=== PATIENT | female | born 1945 | race Caucasian/White ===

== ENCOUNTER 2020-09-14 10:26 | Outpatient (CLI) | payer OTHER, MEDICARE, SELFPAY | END 2020-09-14 10:27 | disposition home or self-care (01) | LOC: ANHCOVIDVC 10:27 | PROVIDERS: PCP Internal Medicine | DX: Z23 Encounter for immunization (principal) | CPT/HCPCS: 0001A; 91300 ==

== ENCOUNTER 2020-10-05 10:35 | Outpatient (CLI) | payer OTHER, MEDICARE, SELFPAY | END 2020-10-05 10:36 | disposition home or self-care (01) | LOC: ANHCOVIDVC 10:35 | PROVIDERS: PCP Internal Medicine | DX: Z23 Encounter for immunization (principal) | CPT/HCPCS: 0002A; 91300 ==

== ENCOUNTER 2021-03-01 10:43 | Outpatient (CLI) | payer OTHER, SELFPAY ==
--- NOTE | ~2021-03-01 | XR_ITS ---
XR chest 2V DATE: 03/01/2021 11:01 INDICATION: Shortness of breath. Pain. TECHNIQUE: PA and lateral views COMPARISON: 02/03/2019 PA and lateral chest FINDINGS: Triple lead left pacemaker device with leads overlying right atrium, right ventricle and co ronary sinus. Normal heart size. There is aortic unfolding. No hilar or mediastinal enlargement. No pulmonary infiltrate or consolidation, pleural effusion or pulmonary vascular congestion or pneumo thorax is detected. Diffuse osteopenia. IMPRESSION: Triple lead left-sided pacemaker device No active cardiopulmonary disease or significant change since 02/03/2019 Reviewed, dictated and finalized at location B.
== END 2021-03-01 10:44 | disposition home or self-care (01) ==
LOC: ANHIMG 10:48
PROVIDERS: PCP Internal Medicine; Visit Provider Internal Medicine Cardiovascular Disease
DX: R06.02 Shortness of breath (principal); Z86.2 Personal history of diseases of the blood and blood-forming organs and certain disorders involving the immune mechanism; Z95.0 Presence of cardiac pacemaker
CPT/HCPCS: 71046

== ENCOUNTER → 2022-10-11 14:25 | Outpatient (CLI) | payer OTHER, SELFPAY ==
--- NOTE | ~2022-10-11 | XR_ITS ---
AP and lateral views of the right hip Clinical history: Pain Findings: No acute fracture or dislocation is seen. Osseous alignment is anatomic. The right hip join t is preserved. Soft tissues are unremarkable. Impression: No significant abnormality is seen. Reviewed, dictated and finalized at location . Impression: No significant abnormality is seen.
== END ==
PROVIDERS: PCP Family Medicine; Visit Provider Family Medicine
DX: M25.551 Pain in right hip (principal)
CPT/HCPCS: 73502

== ENCOUNTER 2023-03-24 14:07 | Outpatient (CLI) | payer OTHER, SELFPAY | END 2023-03-24 14:08 | disposition home or self-care (01) | LOC: ANHAUDIO 14:07 | PROVIDERS: PCP Family Medicine; Visit Provider Otolaryngology | DX: H65.91 Unspecified nonsuppurative otitis media, right ear (principal); H90.42 Sensorineural hearing loss, unilateral, left ear, with unrestricted hearing on the contralateral side; H90.71 Mixed conductive and sensorineural hearing loss, unilateral, right ear, with unrestricted hearing on the contralateral side | CPT/HCPCS: 92557; 92567 ==

== ENCOUNTER → 2023-04-04 10:31 | Outpatient (CLI) | payer OTHER, SELFPAY ==
--- NOTE | ~2023-04-04 | XR_ITS ---
XR chest 2V DATE: 04/04/2023 10:39 INDICATION: Cough, congestion. Upper respiratory infection. TECHNIQUE: 2 views COMPARISON: 03/01/2021 2 view chest FINDINGS: Left triple lead pacemaker is again noted. Heart size is normal. Mild aortic unfolding. No hilar or mediastinal enlargement. Moderate bilateral hyperinflation. No pulmonary infiltrate or consolidation, pleural effusion or pulm onary vascular congestion or pneumothorax is detected. Osteopenia IMPRESSION: No active cardiopulmonary disease Reviewed, dictated and finalized at location B. 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
== END ==
PROVIDERS: PCP Family Medicine; Visit Provider Family Medicine
DX: J06.9 Acute upper respiratory infection, unspecified (principal); R05.9 Cough, unspecified
CPT/HCPCS: 71046

== ENCOUNTER 2024-07-05 08:22 | Emergency (ER) | payer OTHER, SELFPAY ==
--- NOTE | ~2024-07-05 | XR_ITS ---
EXAMINATION: XR chest 2V DATE: 07/05/2024 08:58 INDICATION: Productive cough with difficulty breathing TECHNIQUE: frontal view of the chest was obtained. COMPARISON: Chest radiograph dated 04/04/2023 FINDINGS: The lungs are clear with no focal airspace opacities, pulmonary edema, pleural effusion or pneumothor ax. Heart size is normal. Tortuous thoracic aorta. Three lead pacemaker/AICD seen with leads projecti ng over the expected locations of the right atrial appendage, apex of the right ventricle and overlyi ng the left ventricle likely having traversed the coronary sinus. IMPRESSION: 1. No acute cardiopulmonary disease. Reviewed, dictated and finalized at location A. ARD PEELER
[2024-07-05 08:38] VITALS: BP 117/99; PULSE 67; RESP 16; TEMP 36.6; O2SAT 98
--- NOTE | 2024-07-05 08:41 | ED.URI ---
HPI - URI/Sore Throat General Chief Complaint: Upper Respiratory Infection Stated Complaint: cough,chest/between shoulders hurt Time Seen by Provider: 07/05/24 08:42 Source: patient, RN notes reviewed and old records reviewed Mode of arrival: ambulatory Limitations: no limitations History of Present Illness HPI Narrative: Patient presents with complaints of 1 week of painful cough that is getting worse. She denies any shortness of breath. She has not been taking anything for her symptoms. Related Data Home Medications ?Medication ?Instructions ?Recorded ?Confirmed ?Last Taken ?Type warfarin 3 mg tablet 3 mg PO DAILY 04/01/19 06/01/24 Unknown History Allergies Allergy/AdvReac Type Severity Reaction Status Date / Time adhesive tape AdvReac Intermediate Rash Verified 07/05/24 08:45 codeine AdvReac Intermediate NAUSEA/VOMI Verified 07/05/24 08:45 TING Review of Systems Review of Systems: All systems reviewed & are unremarkable except as noted in HPI and below Constitutional: Constitutional: Reports no additional constitutional complaints ENT: Reports system reviewed and no additional complaints, except as documented Cardiovascular: Cardiovascular: Reports no additional cardiovascular complaints Respiratory: Respiratory: Reports no additional respiratory complaints, Reports change in phlegm color, Reports chest congestion, Reports cough and Reports excessive phlegm production Gastrointestinal: Gastrointestinal: Reports no additional gastrointestinal complaints [facility] Past Medical History Medical History Pruritus ani Cardiac pacemaker Low output heart failure Disorder of implantable defibrillator Chronic heart failure Cardiomyopathy Family History Family History Mother Family history of congestive heart failure, Onset Age: 88 Patient's mother is , Onset Age: 88 Father Patient's father is , Onset Age: 68 Acute myocardial infarction, Onset Age: 68 Father Heart disease Mother Heart disease Breast cancer Colon polyp Sibling Heart disease Other Hypertension Social History Social History Social History: Caffeine-coffee/tea Smoking status: Never smoker Second hand tobacco smoke exposure: No Alcohol intake: former Substance use: never Substance use type: does not use Lack of Transportation: No Lack of Food: Never True Current Housing: I Have Housing Concerned About Future Housing: No Difficulty Paying Gas/Electric Bills: No Difficulty Paying for Meds: No Currently Unemployed: No Education: Decline to Answer Difficulty w/ Childcare or Family Care: No Comments At the time of my signature, I reviewed and agree with the nursing past medical, surgical, social, and family history. There is no relevant family history pertinent to the patient complaint. Exam Const: General: cooperative, no acute distress, alert and awake Orientation/consciousness: oriented to person, oriented to place and oriented to time HENMT: Head: normal to inspection Resp: Effort & Inspection: normal respiratory effort and able to speak in complete sentences Auscultation: clear to auscultation bilaterally, no crackles, no rales, no rhonchi and wheezes (Mild scattered) Cardio: Palpation: normal PMI Rate: regular rate Rhythm: regular rhythm Heart sounds: S1 normal heart sound present and S2 normal heart sound present Neuro: General: oriented to person, oriented to place and oriented to time Cranial nerves: Yes CN's II-XII intact bilaterally Psych: Appearance: grossly normal Thought process: Normal thought process present Insight: Good insight present (Psych) Judgement: Good judgement present (Psych) Course Course Level of Care: Express Care Visit Vital Signs Vital signs: Vital Signs Temperature 97.9 F 07/05/24 08:38 Pulse Rate 67 07/05/24 08:38 Respiratory Rate 16 07/05/24 08:38 Blood Pressure 117/99 H 07/05/24 08:38 Pulse Oximetry 98 07/05/24 08:38 Oxygen Delivery Room Air 07/05/24 08:38 Temperature 97.9 F 07/05/24 08:38 Pulse Rate 67 07/05/24 08:38 Respiratory Rate 16 07/05/24 08:38 Blood Pressure 117/99 H 07/05/24 08:38 Pulse Oximetry 98 07/05/24 08:38 Oxygen Delivery Room Air 07/05/24 08:38 Reviewed MDM - URI/Sore Throat MDM Narrative Medical decision making narrative: Negative chest x-ray, given patient's age, comorbidities, lung sounds will go ahead and cover with azithromycin. Prednisone burst. Bronchodilator. Patient advised to follow-up primary care provider. Emergency department for new or worsening symptoms. Discharge instructions reviewed with patient, as well as provided in writing per nursing staff. The instructions also include specific and strict return/GO TO THE ER as well as f/u information. All questions have been answered, and the patient deny any further questions with discharge and discharge plan. Some parts of this dictation were generated by voice recognition software and may contain typographical and/or grammatical inaccuracies. Differential Diagnosis Differential diagnosis: Likely upper respiratory infection, otitis media, viral infection, bronchitis and influenza Medical Records Attestation: I reviewed the patient's medical records. Lab Data Attestation: I reviewed the patient's lab results. Imaging Data Attestation: I personally reviewed and interpreted this imaging study as follows: My impression: no acute findings Radiologist's impression: [facility] [address] [place] [address] XRay Report Signed Patient: Karin Camarena : 1945 MR#: [id number] Age: 79 Acct:[id number] Loc: [facility] ADM Date: 07/05/24Attending Dr: Ordering Physician: Mell Cat FNP Date of Service: 07/05/24 Procedure(s): XR chest 2V Accession Number(s): [id number] cc: Mell Cat FNP; Neil Mendez MD~ EXAMINATION: XR chest 2V DATE: 07/05/2024 08:58 INDICATION: Productive cough with difficulty breathing TECHNIQUE: frontal view of the chest was obtained. COMPARISON: Chest radiograph dated 04/04/2023 FINDINGS: The lungs are clear with no focal airspace opacities, pulmonary edema, pleural effusion or pneumothorax. Heart size is normal. Tortuous thoracic aorta. Three lead pacemaker/AICD seen with leads projecting over the expected locations of the right atrial appendage, apex of the right ventricle and overlying the left ventricle likely having traversed the coronary sinus. IMPRESSION: 1. No acute cardiopulmonary disease. Reviewed, dictated and finalized at location A. 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 It is intended for [id number] communication. It is written in medical language and may contain unfamiliar abbreviations or verbiage. Medical documents are intended to carry relevant information, facts as evident, and the clinical opinion of the practitioner at the time of the encounter. This report may have been done utilizing a voice recognition system. Attempts have been made to correct errors. However, there may be uncorrected grammatical, spelling, and recognition errors present. The file time of this note does not necessarily represent the time of service. Dictated By: Martin Moore MD 07/05/24904 Signed By: <Electronically signed by Martin Moore MD in OV> 07/05/24905 Discharge Plan Discharge Clinical Impression: Bronchitis Patient Disposition: Home, Self-Care Condition: Stable Instructions: Antibiotic Form, Acute Bronchitis (ED) Additional Instructions: Take medications as prescribed. Follow-up with primary care provider. Emergency department for new or worse symptoms Azithromycin may affect your warfarin. Please call the provider that manages your warfarin today to find out when you need to have your blood drawn Patient Language: Maltese Prescriptions: New azithromycin 250 mg tablet See Rx Instructions .ROUTE .COMPLEX Qty: 6 0RF Rx Instructions: For 250 mg dose pack: take 500 mg today (day 1), then 250 mg for 4 days (days 2-5) prednisone 50 mg tablet 50 mg PO DAILY Qty: 5 0RF No Action levothyroxine 75 mcg tablet See Rx Instructions .ROUTE .COMPLEX Qty: 90 2RF Dose Instruction: TAKE 1 TABLET BY MOUTH DAILY Rx Instructions: TAKE 1 TABLET BY MOUTH DAILY omeprazole 10 mg capsule,delayed release(DR/EC) See Rx Instructions .ROUTE .COMPLEX Qty: 90 2RF Dose Instruction: TAKE 1 CAPSULE BY MOUTH DAILY Rx Instructions: TAKE 1 CAPSULE BY MOUTH DAILY pravastatin 20 mg tablet 20 mg PO DAILY Qty: 90 2RF warfarin 3 mg tablet 3 mg PO DAILY carvedilol 6.25 mg tablet 6.25 mg PO Q12H Qty: 180 2RF Rx Instructions: must administer with a meal/food fluticasone propionate [Allergy Relief (fluticasone)] 50 mcg/actuation spray,suspension 1 spray intranasal BID Qty: 48 2RF Rx Instructions: administer into each nostril lisinopril 10 mg tablet 10 mg PO DAILY Qty: 90 2RF spironolactone 25 mg tablet 25 mg PO DAILY Qty: 90 2RF Follow-up/Referrals: Neil Mendez MD [Primary Care Provider] - 3 Days Time of Disposition: 09:18
== END 2024-07-05 09:48 | disposition home or self-care (01) ==
PROVIDERS: Emergency Provider Nurse Practitioner Family; PCP Emergency Medicine
DX: J40 Bronchitis, not specified as acute or chronic (principal); I50.9 Heart failure, unspecified; I42.9 Cardiomyopathy, unspecified; Z95.0 Presence of cardiac pacemaker; Z79.01 Long term (current) use of anticoagulants
CPT/HCPCS: 71046; 99213; G0463

== ENCOUNTER 2025-02-23 07:44 | Outpatient (CLI) | payer OTHER, SELFPAY ==
--- NOTE | ~2025-02-23 | DEXA_ITS ---
Bone Density Report Name: NIALL RAMOS Age: 79 Sex: Female Ethnicity: White Date of : 1945 Indication: postmenopausal; screening for osteoporosis; height loss; Referring Provider: BAYRON DOW Study: Bone densitometry was performed. Exam Date: February 23, 2025 Accession number: [id number] Bone Density: Region BMD T-score Z-score Classification AP Spine(L1-L4) 0.799 -2.3 0.5 Osteopenia Femoral Neck (Left) 0.495 -3.2 -0.9 Osteoporosis Total Hip (Left) 0.619 -2.6 -0.5 Osteoporosis Femoral Neck (Right) 0.545 -2.7 -0.4 Osteoporosis Total Hip (Right) 0.664 -2.3 -0.2 Osteopenia Total Hip Mean 0.642 -2.5 -0.4 Osteopenia World Health Organization criteria for BMD impression classify patients as: Normal (T-score at or above -1.0), Osteopenia (T-score between -1.0 and -2.5), or Osteoporosis (T-score at or below -2.5). 10-year Fracture Risk: FRAX not reported because: Some T-score for Spine Total or Hip Total or Femoral Neck at or below -2.5 Clinical Information Provided by Patient: Has used the following medications: Vitamin D Patient maximum height was 63 Menopause Age: 32 No regular weight bearing exercise Drinks caffeinated beverages Onset of menses at age 15 Number of children 3 Impression: The patient has osteoporosis, based on the Left Femoral Neck T-score. Discussion: INCREASED RISK OF FRACTURE. BONE DENSITY IS UNDESIRABLY LOW AT ONE OR MORE SKELETAL SITES, CONSISTENT WITH POSTMENOPAUSAL OSTEOPOROSIS. This patient's lowest T-score meets the World Health Organization's (WHO) criteria for osteoporosis at one or more sites (T-score -2.5 or below). In untreated patients, the risk of osteoporotic fracture increases approximately two-fold for each 1.0 SD decrease in T-score. Low bone density is not the only risk factor for fracture; also consider factors such as patient's age, frailty or poor health, risk of falling, risk of injury, previous osteoporotic fracture, family history of osteoporosis, cigarette smoking, low body weight, etc. Not everyone with low bone mineral density has osteoporosis; osteomalacia and other metabolic bone disorders should also be considered. Patients who have osteoporosis should be evaluated for specific diseases and conditions (secondary causes) that may cause or contribute to bone loss. The [place] Association of Clinical Endocrinologists (AACE) and National Osteoporosis Foundation (NOF) recommend pharmacologic intervention for all postmenopausal women whose T-score is in this range. The patient should follow a healthful lifestyle (good nutrition with adequate calcium and vitamin D, and appropriate weight-bearing exercise). Follow-Up: Consider a repeat BMD and Vertebral Fracture Assessment (VFA) exam in 2 years or sooner if medically necessary, to reassess this patient's status. Reported by: MARY on 02/23/2025 8:09:00 AM. Reviewed, dictated and finalized at location A.
== END 2025-02-23 07:45 | disposition home or self-care (01) ==
LOC: MICIMG 07:45
PROVIDERS: PCP Emergency Medicine; Visit Provider Emergency Medicine
DX: M85.89 Other specified disorders of bone density and structure, multiple sites (principal); M81.0 Age-related osteoporosis without current pathological fracture; Z78.0 Asymptomatic menopausal state
CPT/HCPCS: 77080

== ENCOUNTER 2025-03-02 06:51 | Emergency (ER) | payer OTHER, SELFPAY ==
[2025-03-02] VITALS (9 sets, daily range): BP systolic 115–148; BP diastolic 67–82; PULSE 56–118; RESP 7–22; TEMP 36.6; O2SAT 97–98
--- NOTE | ~2025-03-02 | XR_ITS ---
Examination: XR chest 2V Clinical History: pacemaker fired off HX CHF Comparison: 07/05/2024 Technique: PA and Lateral Findings: Left ICD. Cardiomediastinal silhouette normal size and configuration. Lungs clear. No acute bony abnormality. IMPRESSION: 1. No acute cardiopulmonary findings. Reviewed, dictated and finalized at location R.
--- OUTSIDE RECORDS SUMMARY | 2025-03-02 06:54 | XMS_ITS | Encounter Summary ---
Author Organization [facility] Address [address] [place] [address] Care Team Providers Care Optical Manufacturing Technician Name Role Phone Carlton Kline MD Primary Care Provider [phone] Carlton Kline MD Primary Care Provider [phone] Alcides Adams DO Primary Care Provider [phone] Neil Mendez MD Primary Care Provide r Encounter Details Date Type Department Care Team (Late st Contact Info) Description 05/01/2016 Orders Only [facility] ProviderMaxwell MD [address] [place] [id number] Social History Tobacco Use Types Packs/Day Years Used Date Smoking Tobacco: Never Alcohol Use Standard Drinks/Week Comments No 0 (1 standard drink = 0.6 oz pur e alcohol) Comments Unknown Sex and Gender Information Value Date Recorded Sex Assigned at Not on file 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 Historical Provider [facility] Final Result documented in this encounter Visit Diagnoses Not on filedocumented in this encounter Care Teams Optical Manufacturing Technician Relationship Specialty Start Date End Date Carlton Kline MD [address] [place] [address] PCP - General 08/16/16 03/04/22 Carlton Kline MD [address] [place] [address] PCP - General 08/10/14 08/15/16 Alcides Adams DO [address] [place] [address] PCP - General Family Medicine 03/05/22 06/01/24 Neil Mendez MD [address] [place] [address] PCP - General Emergency Medicine 06/02/24 documented as of this encounter
--- OUTSIDE RECORDS SUMMARY | 2025-03-02 06:54 | XMS_ITS | Clinical Summary ---
Author Organization [facility] Address [address] [place] [address] Care Team Providers Care Hearing Aid Specialist Name Role Phone Alcides Adams DO Primary Care Provider [phone] Source Comments [facility],non-owned Affiliates and Associated Physician Practices is amultiple site organization consisting of ambulatory clinics and hospital sitesin [place], [place], [place] and [place]. This disclosure is being madepursuant to the Care Everywhere program and may not contain all information available regarding this patient. Last updated 18.[facility] Allergies Active Allergy Reactions Criticality Noted Date Comments Adhesive Sensitivity Rash Medium 02/23/2020 Codeine Vomiting 02/23/2020 Medications * Be aware that medications may not be up to date on this document. Alwaysverify current medications with the patient. carvedilol (Coreg) 6.25 MG tablet Take 1 (one) tablet by mouth once daily 06/27/2023 Active levothyroxine (Synthroid) 75 MCG tablet Take 1 (one) tablet by mouth once daily 05/14/2023 Active lisinopril (Prinivil; Zestril) 10 MG tablet Take 1 (one) tablet by mouth once daily 06/27/2023 Active omeprazole (PriLOSEC) 10 MG capsule Take 1 (one) capsule by mouth once daily 05/14/2023 Active pravastatin (Pravachol) 20 MG tablet Take 25 mg by mouth once daily 06/27/2023 Active spironolactone (Aldactone) 25 MG tablet Take 1 (one) tablet by mouth once daily 04/18/2023 Active triamcinolone acetonide (Kenalog) 0.1 % ointment Apply 1 g to affected area as needed 05/20/2023 Active warfarin (Coumadin) 3 MG tablet Take 1 (one) tablet by mouth once daily 06/27/2023 Active fluticasone propionate (Flonase) 50 MCG/ACT nasal spray Godfrey 1 (one) spray into each nostril once daily 16 g 5 06/30/2023 Active Immunizations Immunization Administration Dates Next Due FLU VACCINE TRI IIV3 SPLIT IM (FLUVIRIN) 014 INFLUENZA VACCINE 06/08/2014,06/10/2013,03/11/20 13 INFLUENZA VACCINE, ADJUVANTE D, QUADR. (FLUAD QUADRIVALENT; 65Y+) (AIIV4) 02/28/2022 INFLUENZA VACCINE, ADJUVANTE D, TRIV. (FLUAD TRIVALENT; 65Y+) (AIIV3) 04/01/2017 INFLUENZA VACCINE, HIGH-DOSE , QUADR. (FLUZONE HIGH-DOSE QUADRIVALENT; 65Y+), 0.7 ML (HD-IIV4) 04/04/2023,02/23/2020 INFLUENZA VACCINE, HIGH-DOSE , TRIV. (FLUZONE HIGH-DOSE TRIVALENT; 65Y+) (HD-IIV3) 03/12/2019,03/16/2018,04/04/2016 Pneumococcal Pcv13 Conj 04/04/2016 Social History Tobacco Use Types Packs/Day Years Used Date Smoking Tobacco: Never Smokeless Tobacco: Never Alcohol Use Standard Drinks/Week Comments Not Currently 0 (1 standard drink = 0.6 oz pur e alcohol) Comments Unknown Sex and Gender Information Value Date Recorded Sex Assigned at Not on file Legal Sex Female 12:27 PM CDT Gender Identity Not on file Sexual Orientation Not on file Last Filed Vital Signs Vital Sign Reading Time Taken Comments Blood Pressure 130/65 07/28/2023 9:04 AM CDT Pulse 59 07/28/2023 9:04 AM CDT Temperature - - Respiratory Rate - - Oxygen Saturation - - Inhaled Oxygen Concentration - - Weight 64.8 kg (142 lb 12.8 oz) 07/28/2023 9:04 AM CDT Height 160 cm (5' 3) 07/28/2023 9:04 AM CDT Body Mass Index 25.3 07/28/2023 9:04 AM CDT Plan of Treatment Health Maintenance Due Date Last Done Comments BONE DENSITY TESTING 1945 MEDICARE AWV 12 MONTHS 1945 DTAP/TDAP/TD VACCINES (1 - Tdap) 1963 ZOSTER VACCINE (1 of 2) 1994 PNEUMOCOCCAL VACCINE 50+ (2 of 2 - PCV20 or PCV21) 04/04/2017 04/04/2016 Respiratory Syncytial Virus (RSV) Vaccine Pt: or over 60 yrs (1 - 1-dose 75+ series) 2019 DEPRESSION SCREENING 05/19/2024 COVID-19 VACCINE ( - 2024- season) 2025 05/15/2023, 06/05/2021, 10/05/2020, Additional history exists INFLUENZA VACCINE (#1) 2025 , 02/28/2022, 02/23/2020, Additional history exists HEPATITIS B VACCINE Aged Out No longe r eligible based on patient's age to complete this topic HIB VACCINE Aged Out No longer eligi ble based on patient's age to complete this topic HPV VACCINE Aged Out No longer eligi ble based on patient's age to complete this topic MENINGOCOCCAL (Group B) VACCINE SHARED DECISION-MAKING Aged Out No longer eligible based on patient's age to complete this topic MENINGOCOCCAL GROUPS A/C/Y/W VACCINE Aged Out No longer eligible based on patient's age to complete this topic Insurance [facility] MEDICARE * Guarantor: Karin Camarena Account Type Relation to Patient Date of Phone Billing Address Personal/Family Self 1945 [address] [place] [address] [facility] MEDICARE Care Teams Hearing Aid Specialist Relationship Specialty Start Date End Date Aclides Adams DO [facility] [place] [address] PCP - General Family Medicine 05/26/23
--- OUTSIDE RECORDS SUMMARY | 2025-03-02 06:54 | XMS_ITS | Encounter Summary ---
Author Organization [facility] Address [address] [place] [address] Care Team Providers Care Bicycle Ii Assembler Name Role Phone Carlton Kline MD Primary Care Provider [phone] Carlton Kline MD Primary Care Provider [phone] Alcides Adams DO Primary Care Provider Neil Mendez MD Primary Care Provide r Encounter Details Date Type Department Care Team (Late st Contact Info) Description 06/11/2016 Orders Only [facility] ProviderMaxwell MD [address] [place] [address] Social History Tobacco Use Types Packs/Day Years Used Date Smoking Tobacco: Never Alcohol Use Standard Drinks/Week Comments No 0 (1 standard drink = 0.6 oz pur e alcohol) Comments Unknown Sex and Gender Information Value Date Recorded Sex Assigned at Not on file 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 Historical Provider [facility] Final Result documented in this encounter Visit Diagnoses Not on filedocumented in this encounter Care Teams Bicycle Ii Assembler Relationship Specialty Start Date End Date Carlton Kline MD [address] [place] [address] PCP - General 08/16/16 03/04/22 Carlton Kline MD [address] [place] [address] PCP - General 08/10/14 08/15/16 Alcides Adams DO [address] [place] [address] PCP - General Family Medicine 03/05/22 06/01/24 Neil Mendez MD [address] [place] [address] PCP - General Emergency Medicine 06/02/24 documented as of this encounter
--- OUTSIDE RECORDS SUMMARY | 2025-03-02 06:54 | XMS_ITS | Clinical Summary ---
Author Organization [facility] Address [address] [place] [address] Care Team Providers Care Journeyman Pipefitter Name Role Phone Neil Mendez MD Primary Care Provide r Allergies Active Allergy Reactions Criticality Noted Date Comments Adhesive Tape-Silicones Rash Medium Codeine Nausea only Low Medications spironolactone (ALDACTONE) 25 mg tablet take 1 by Oral route every day 0 09/02/2011 Active pravastatin (PRAVACHOL) 20 mg tablet take 1 Tablet by ORAL route every day 0 0 03/22/2013 Active lisinopril (PRINIVIL,ZESTR IL) 10 mg tablet TAKE 1 TABLET EVERY DAY FOR HEART 30 5 07/06/2012 Active triamcinolone (KENALOG) 0.1 % cream apply by topical route 2 times every day a thin layer to the affected area(s) 0 0 10/02/2015 Active levothyroxine sodium (TIROSINT) 75 mcg capsule take 1 by Oral route once 0 0 10/02/2015 Active carvediloL (COREG) 6.25 mg tablet Take 1 tablet (6.25 mg total) by mouth 2 (two) times a day with meals 180 tablet 1 01/02/2024 Active warfarin (COUMADIN) 3 mg tablet TAKE 1 TABLET(3 MG) BY MOUTH DAILY 90 tablet 3 01/21/2024 Active fluticasone propionate (FLONASE) 50 mcg/actuation nasal spray 02/09/2024 Active omeprazole (PriLOSEC) 10 mg capsule 04/28/2024 Active Active Problems Problem Noted Date Diagnosed Date Polymorphic ventricular tachycardia 06/03/2018 Grief reaction 06/03/2018 Shortness of breath 12/30/2017 Anxiety 12/30/2017 Pain in both lower extremities 03/10/2017 Biventricular ICD (implantab le cardioverter-defibrillator) in place 11/25/2016 Overview (09/25/2017): Medtronic BIV ICD Dx; NICM, CHF, LBBB. Gen change 09/23/2017, chronic leads 08/14/2011. Carelink remote home monitoring Q3 mo, Office device checks Q1 year. Assessment & Plan (11/25/2016 6:55 PM CDT): Had pacemaker checks in July and October, RV pacing 99%, activity level in July was greater than 8 hours a day, normal function, no defibrillations. Continue with device clinic; needs an office ICD check in 3 months. 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 Unlikely to be an SBE-type vegetation, more likely to be a small thrombus or perhaps a murantic vegetation. Asymptomatic, did not respond aspirin, now on warfarin Chronic anticoagulation 11/25/2016 Assessment & Plan (11/25/2016 6:53 PM CDT): For mass on right atrial pacemaker lead INR earlier this month was 2.7 Compliant with follow-up Nondependent alcohol abuse, in remission 017 Overview (08/23/2016): Alcohol abuse, in remission Nonischemic congestive cardiomyopathy 10/02/2015 Overview (08/22/2016): Nonischemic dilated cardiomyopathy Assessment & Plan (11/25/2016 6:55 PM CDT): Cardiomyopathy thought to be secondary to HTN and alcohol abuse. Original EF was 35%, but by May 2016 had improved to 58% with medications and biventricular pacing. Euvolemic, class 1-2 symptoms. Continue medical therapy with carvedilol, spironolactone and lisinopril. 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 I thought perhaps there was some underlying depression but the patient denies this. Patient will follow up with Dr. Kline for evaluation, and re-evaluation of thyroid disease. Hypercholesterolemia 08/01/2014 Overview (08/23/2016): Hyperlipidemia Assessment & Plan (11/25/2016 6:54 PM CDT): No recent lipids available for review Fingerstick lipids today: Total cholesterol 146, HDL 50, TG 114, LDL 74 Acceptable, continue pravastatin Hypertensive heart disease w ith chronic diastolic congestive heart failure ([facility]) 09/20/2013 Overview (08/23/2016): HYP HT DIS NOS W HT FAIL Assessment & Plan (11/25/2016 6:51 PM CDT): Blood pressure at goal. Hypotension 03/22/2013 Overview (08/22/2016): Hypotension Resolved Problems Problem Noted Date Diagnosed Date Resolved Date Chest pain on breathing 02/28/2021 11/0 12/2022 ICD (implantable cardioverte r-defibrillator) discharge 06/03/2018 02/02/2019 Nondependent alcohol abuse, episodic drinking behavior 10/02/2015 11/25/2016 Overview (08/23/2016): Alcohol abuse, episodic Encounters Date Type Department Care Team Description 02/10/2025 Anticoagulation Visit [facility] at [address] [place] [phone] Ludivina Hylton RN Nonischemic congestive cardiomyopathy (HCC) (Primary Dx); Chronic combined systolic and diastolic CHF (congestive heart failure) (CMS/HCC) (HCC) 12/29/2024 Anticoagulation Visit [facility] [address] [facility] [address] [place] [address] Rani Freedman RN Nonischemic congestive cardiomyopathy (HCC) (Primary Dx); Chronic combined systolic and diastolic CHF (congestive heart failure) (CMS/HCC) (HCC) 12/08/2024 9:00 AM CDT Ancillary Procedure [facility] [address] [place] [address] [place] [phone] Biventricular ICD (implantable cardioverter-defibri llator) in place (Primary Dx); Left bundle branch block (LBBB); Nonischemic congestive cardiomyopathy (HCC); Chronic combined systolic and diastolic CHF (congestive heart failure) (HCC) 12/08/2024 Orders Only [facility] [address] [place] [address] [place] [phone] rTe Patterson MD Left bundle branch block (LBBB) (Primary Dx); Nonischemic congestive cardiomyopathy (HCC); Chronic combined systolic and diastolic CHF (congestive heart failure) (HCC); Biventricular ICD (implantable cardioverter-defibri llator) in place from Last 3 Months Surgical History Surgery Date Site/Laterality Comments HYSTERECTOMY Hysterectomy OTHER SURGICAL HISTORY Thyroidectomy, partial Medical History Medical History Date Comments Gastroesophageal reflux disease GERD Hx Other Medical Depression, wit h Anxiety Hx Other Medical DJD Family History Medical History Relation Name Comments Colon cancer Brother 2 Cancer, colon; Coronary artery disease Brother 3 CABG ; Colon cancer Mother Cancer, colon; /Cancer, colon; Cause of : Cancer, colon Other Sister CAD, Stent; Relation Name Status Comments Brother 1 Alive Brother 2 Brother 3 Mother Sister Social History Tobacco Use Types Packs/Day Years Used Date Smoking Tobacco: Never Smokeless Tobacco: Never Tobacco Cessation:Counseling Given: Not Answered Alcohol Use Standard Drinks/Week Comments No 0 (1 standard drink = 0.6 oz pur e alcohol) Comments Unknown Sex and Gender Information Value Date Recorded Sex Assigned at Not on file Legal Sex Female 10:09 AM COLLECTION MANAGER Gender Identity Not on file Sexual Orientation Not on file Obstetrics History Last Filed Vital Signs Vital Sign Reading Time Taken Comments Blood Pressure 104/68 05/05/2024 8:14 AM COLLECTION MANAGER Pulse 74 05/05/2024 8:14 AM COLLECTION MANAGER Temperature 36.2 C (97.1 F) 03/15/2020 2:00 PM CDT Respiratory Rate - - Oxygen Saturation 99% 05/05/2024 8:14 AM COLLECTION MANAGER Inhaled Oxygen Concentration - - Weight 65.5 kg (144 lb 6.4 oz) 05/05/2024 8:14 A M COLLECTION MANAGER Height 160 cm (5' 3) 05/05/2024 8:14 AM COLLECTION MANAGER Body Mass Index 25.58 05/05/2024 8:14 AM COLLECTION MANAGER Plan of Treatment Health Maintenance Due Date Last Done Comments Depression Screening 1945 Fall Risk Assessment 1945 Osteoporosis Screening-Bone Density Scan 1945 DTaP/Tdap/Td Vaccine (1 - Tdap) 1955 Hepatitis B Screening 1962 Zoster Vaccine (1 of 2) 1994 Well Visit 65+ 2009 Pneumococcal vaccine 65+ (2 of 2 - PPSV23, PCV20, or PCV21) 05/30/2016 04/04/2016 Influenza Vaccine (#1) 2025 8, 04/01/2017, 04/04/2016, Additional history exists Medical Devices Implanted Type Area Tank Cleaning Supervisor Device Identifier Shelf Expiration Date Model / Serial / Lot Icd-08/14/2011 Implanted:08/13 by Joel Obrien DO (Quantity not on file) Explanted:Qty: 1 on 09/23/2017 ICD Chest Medtronic NICM, CHF, LBBB PROT ECTA ADHESIVE BANDAGE MAKING OPERATOR-D / [id number] / Icd-09/23/2017 Implanted:09/23 by Amina Birmingham MD (Quantity not on file) ICD Chest Medtronic NICM, CHF, LBBB VIVA XT C RT-D / [id number] / CHRONIC LEADS 08/14/2011 Procedures Procedure Name Priority Date/Time Associated Diagnosis Comments PROTIME-INR Routine 02/10/2025 7:41 AM CDT Chronic anticoagulation PROTIME-INR Routine 12/28/2024 7:27 AM CDT Chronic anticoagulation DEVICE CHECK - REMOTE Routine 12/08/2024 8:19 AM CDT Left bundle branch block (LBBB) Nonischemic congestive cardiomyopathy (HCC) from Last 3 Months Results * (ABNORMAL) Protime-INR (02/10/2025 7:41 AM CDT) INR 2.8(H) [facility] Comment: Reference Range 0.9-1.1 Moderate-intensity Warfarin Therapy 2.0-3.0 Higher-intensity Warfarin Therapy 3.0-4.0 PT 28.2(H) 9.0 - 11.5 sec [facility] Comment: For additional information, please refer to http://education.[employer]/faq/WLT798 (This link is being provided for informational/ educational purposes only.) Blood 02/10/2025 7:41 AM CDT 02/10/2025 7:43 AM CDT Narrative QUEST - 02/10/2025 5:27 PM CDT FASTING:NO FASTING: NO us Tre Patterson MD LAB BLOOD ORDERABLES Final Resul t [facility] [address] [place] [address] * (ABNORMAL) Protime-INR (12/28/2024 7:27 AM CDT) INR 3.0(H) [facility]etch[facility] maria isabel Barrios Comment: Reference Range 0.9-1.1 Moderate-intensity Warfarin Therapy 2.0-3.0 Higher-intensity Warfarin Therapy 3.0-4.0 PT 30.3(H) 9.0 - 11.5 sec [facility] Comment: For additional information, please refer to http://education.[employer]/faq/NZX843 (This link is being provided for informational/ educational purposes only.) Blood 12/28/2024 7:27 AM CDT 12/28/2024 7:28 AM CDT Tre Patterson MD LAB BLOOD ORDERABLES Final Resul t [facility] [address] [place] [address] * DEVICE CHECK - REMOTE (12/08/2024 8:19 AM CDT) Anatomical Region Laterality Modality Other Narrative 01/13/2025 1:12 PM CDT Medtronic BIV ICD Dx; NICM, CHF, LBBB. Gen change 09/23/2017, chronic leads 08/14/2011. Carelink remote home monitoring Q3 mo, Office device checks Q1 year. Routine DDD ICD Remote. Transmission attached. Battery status 2.78 V, 3 months remaining battery life to PANCHO. Stable Charge time and Shock impedance. Stable lead impedances, pacing, and sensing threshold. Presenting rhythm: /BV AP-0.5 %, total AUTOMATIC BEADING LATHE OPERATOR-99.4 %, Bi-V P-100.0 %. (0) AT/AF episodes noted. (0) Ventricular tachy arrhythmias detected. Medication: Warfarin, carvedilol 6.25 mg, lisinopril 10 mg Follow up: Office Pacemaker/ICD scheduled 6 months' CareLink remote 03/16/25 Gary Santiago, LEO Amina Birmingham MD CV CARDIAC SERVICES PROCEDU RES Final Result from Last 3 Months Insurance [facility] * Guarantor: MigueErnestoKarin Account Type Relation to Patient Date of Phone Billing Address Personal/Family Self 1945 [address] [place] [address] [facility] Care Teams Journeyman Pipefitter Relationship Specialty Start Date End Date Neil Mendez MD [address] [place], [place] [id number] PCP - General Emergency Medicine 06/02/24
--- NOTE | 2025-03-02 07:02 | ECG_ITS ---
Test Date: 2025-03-02 07:10:34 Measurements Intervals Jennings Rate: 61 P: 109 MD: 123 QRS: 110 QRSD: 121 T: 73 QT: 443 QTc: 447 Interpretive Statements ATRIAL SENSE- ELECTRONIC VENTRICULAR PACEMAKER BASELINE ARTIFACT- I, II, III, AVR, AVL, AVF NO FURTHER INTERPRETATION IS POSSIBLE ATYPICAL ECG No previous ECG available for comparison Electronically Signed On 03-02-2025 07:39:46 CDT by Jorge Alberto Augustine D.O.
--- OUTSIDE RECORDS SUMMARY | 2025-03-02 07:29 | XMS_ITS | Clinical Summary ---
Author Organization [facility] Address [address] [place] [address] Care Team Providers Care Filer Helper Name Role Phone Alcides Adams DO Primary Care Provider [phone] Source Comments [facility],non-owned Affiliates and Associated Physician Practices is amultiple site organization consisting of ambulatory clinics and hospital sitesin [place], [place], [place] and [place]. This disclosure is being madepursuant to the Care Everywhere program and may not contain all information available regarding this patient. Last updated 18.[facility] Allergies Active Allergy Reactions Criticality Noted Date [...] fluticasone propionate (Flonase) 50 MCG/ACT nasal spray [place] 1 (one) spray into each nostril once [...] patient's age to complete this topic Insurance [facility] MEDIC[facility] * Guarantor: Karin Camarena Account Type Relation to Patient Date of Phone Billing Address Personal/Family Self 1945 [address] [facility] [address] [place] [address] [facility] MEDIC[facility] Care Teams Filer Helper Relationship Specialty Start Date End Date Alcides Adams DO [facility] [place] [address] PCP - General Family Medicine 05/26/23
--- OUTSIDE RECORDS SUMMARY | 2025-03-02 07:29 | XMS_ITS | Encounter Summary ---
Author Organization [facility] Address [address] [place] [address] Care Team Providers Care Electrical Controls Technician Name Role Phone Carlton Kline MD Primary Care Provider [phone] Carlton Kline MD Primary Care Provider [phone] Alcides Adams DO Primary Care Provider [phone] Neil Mendez MD Primary Care Provide r Encounter Details Date Type Department Care Team (Late st Contact Info) Description 06/11/2016 Orders Only [facility] ProviderMaxwell MD [address] [place] [address] Social History Tobacco Use Types Packs/Day Years Used Date Smoking Tobacco: Never Alcohol Use Standard Drinks/Week Comments No 0 (1 standard drink = 0.6 oz pur e alcohol) Comments Unknown Sex and Gender Information Value Date Recorded Sex Assigned at Not on file Legal Sex Female 10:09 AM BRANCH SALES AND SERVICE REPRESENTATIVE Gender Identity Not on file Sexual Orientation [...] on filedocumented in this encounter Care Teams Electrical Controls Technician Relationship Specialty Start Date End Date Carlton Kline MD [address] [place] [address] PCP - General 08/16/16 03/04/22 Carlton Kline MD [address] [place] [address] PCP - General 08/10/14 08/15/16 Alcides Adams DO [address] [place] [address] PCP - General Family Medicine 03/05/22 06/01/24 Neil Mendez MD [address] [place] [address] PCP - General Emergency Medicine 06/02/24 documented as of this encounter
--- OUTSIDE RECORDS SUMMARY | 2025-03-02 07:29 | XMS_ITS | Encounter Summary ---
Author Organization [facility] Address [address] [place] [address] Care Team Providers Care Logistics Planner Name Role Phone Carlton Kline MD Primary Care Provider [phone] Carlton Kline MD Primary Care Provider [phone] Alcides Adams DO Primary Care Provider [phone] Neil Mendez MD Primary Care Provide r Encounter Details Date Type Department Care Team (Late st Contact Info) Description 05/01/2016 Orders Only [facility] ProviderMaxwell MD [address] [place] [address] Social History Tobacco Use Types Packs/Day Years Used Date Smoking Tobacco: Never Alcohol Use Standard Drinks/Week Comments No 0 (1 standard drink = 0.6 oz pur e alcohol) Comments Unknown Sex and Gender Information Value Date Recorded Sex Assigned at Not on file Legal Sex Female 10:09 AM CLIN TECH Gender Identity Not on file Sexual Orientation [...] on filedocumented in this encounter Care Teams Logistics Planner Relationship Specialty Start Date End Date Carlton Kline MD [address] [place] [address] PCP - General 08/16/16 03/04/22 Carlton Kline MD [address] [place] [address] PCP - General 08/10/14 08/15/16 Alcides Adams DO [address] [place] [address] PCP - General Family Medicine 03/05/22 06/01/24 Neil Mendez MD [address] [place] [address] PCP - General Emergency Medicine 06/02/24 documented as of this encounter
--- OUTSIDE RECORDS SUMMARY | 2025-03-02 07:29 | XMS_ITS | Clinical Summary ---
Author Organization [facility] Address [address] [place] [address] Care Team Providers Care Sheet Metal Duct Worker Supervisor Name Role Phone Neil Mendez MD Primary [...] an d diastolic CHF (congestive heart failure) ([facility]) 10/02/2015 Overview (08/22/2016): Chronic systolic heart failure [...] w ith chronic diastolic congestive heart failure ([facility]) 09/20/2013 Overview (08/23/2016): HYP HT DIS NOS [...] Department Care Team Description 02/10/2025 Anticoagulation Visit [facility] Cardiology at [address] [place] [phone] Ludivina Hylton RN Nonischemic congestive cardiomyopathy (HCC) (Primary Dx); Chronic combined systolic and diastolic CHF (congestive heart failure) (CMS/HCC) (HCC) 12/29/2024 Anticoagulation Visit [facility] [address] [facility] [address] [place] [address] Rani Freedman RN Nonischemic congestive cardiomyopathy (HCC) (Primary Dx); Chronic combined systolic and diastolic CHF (congestive heart failure) (CMS/HCC) (HCC) 12/08/2024 9:00 AM CDT Ancillary Procedure [facility] [address] [place] [address] [place] [phone] Biventricular ICD (implantable cardioverter-defibri llator) in place (Primary Dx); Left bundle branch block (LBBB); Nonischemic congestive cardiomyopathy (HCC); Chronic combined systolic and diastolic CHF (congestive heart failure) (HCC) 12/08/2024 Orders Only [facility] [address] [place] [address] [place] [phone] Tre Patterson MD Left bundle branch block (LBBB) [...] on file Legal Sex Female 10:09 AM VENTILATOR SPECIALIST Gender Identity Not on file Sexual Orientation Not on file Obstetrics History Last Filed Vital Signs Vital Sign Reading Time Taken Comments Blood Pressure 104/68 05/05/2024 8:14 AM VENTILATOR SPECIALIST Pulse 74 05/05/2024 8:14 AM VENTILATOR SPECIALIST Temperature 36.2 C (97.1 F) 03/15/2020 2:00 PM CDT Respiratory Rate - - Oxygen Saturation 99% 05/05/2024 8:14 AM VENTILATOR SPECIALIST Inhaled Oxygen Concentration - - Weight 65.5 kg (144 lb 6.4 oz) 05/05/2024 8:14 A M VENTILATOR SPECIALIST Height 160 cm (5' 3) 05/05/2024 8:14 AM VENTILATOR SPECIALIST Body Mass Index 25.58 05/05/2024 8:14 AM VENTILATOR SPECIALIST Plan of Treatment Health Maintenance Due Date [...] history exists Medical Devices Implanted Type Area Screw Cutter Device Identifier Shelf Expiration Date Model / Serial / Lot Icd-08/14/2011 Implanted:08/13 by Joel Obrien DO (Quantity not on file) Explanted:Qty: 1 on 09/23/2017 ICD Chest Medtronic NICM, CHF, LBBB PROT ECTA WRAPPER SELECTOR-D / [id number] / Icd-09/23/2017 Implanted:09/23 by Amina Birmingham MD (Quantity not on file) ICD Chest Medtronic NICM, CHF, LBBB VIVA XT C RT-D / [id number] / CHRONIC LEADS 08/14/2011 Procedures Procedure Name Priority Date/Time Associated Diagnosis Comments PROTIME-INR Routine 02/10/2025 7:41 AM CDT Chronic anticoagulation PROTIME-INR Routine 12/28/2024 7:27 AM CDT Chronic anticoagulation DEVICE CHECK - REMOTE Routine 12/08/2024 8:19 AM CDT Left bundle branch block (LBBB) Nonischemic congestive cardiomyopathy (HCC) from Last 3 Months Results * (ABNORMAL) Protime-INR (02/10/2025 7:41 AM CDT) INR 2.8(H) [email or web address] Comment: Reference Range 0.9-1.1 Moderate-intensity Warfarin Therapy 2.0-3.0 Higher-intensity Warfarin Therapy 3.0-4.0 PT 28.2(H) 9.0 - 11.5 sec [email or web address] Comment: For additional information, please refer to http://education.[employer]/faq/HSX311 (This link is being provided for informational/ educational purposes only.) Blood 02/10/2025 7:41 AM CDT 02/10/2025 7:43 AM CDT Narrative [facility] - 02/10/2025 5:27 PM CDT FASTING:NO FASTING: NO us Tre Patterson MD LAB BLOOD ORDERABLES Final Resul t [facility] [address] [place] [address] * (ABNORMAL) Protime-INR (12/28/2024 7:27 AM CDT) INR 3.0(H) [email or web address] maria isabel Barrios Comment: Reference Range 0.9-1.1 Moderate-intensity Warfarin Therapy 2.0-3.0 Higher-intensity Warfarin Therapy 3.0-4.0 PT 30.3(H) 9.0 - 11.5 sec [employer] Comment: For additional information, please refer to http://education.[employer]/faq/TIC494 (This link is being provided for informational/ educational purposes only.) Blood 12/28/2024 7:27 AM CDT 12/28/2024 7:28 AM CDT Tre Patterson MD LAB BLOOD ORDERABLES Final Resul t [employer] [address] [place] [address] * DEVICE CHECK - REMOTE (12/08/2024 8:19 [...] threshold. Presenting rhythm: /BV AP-0.5 %, total RECTANGULAR TANK COOPER-99.4 %, Bi-V P-100.0 %. (0) AT/AF episodes noted. (0) Ventricular tachy arrhythmias detected. Medication: Warfarin, carvedilol 6.25 mg, lisinopril 10 mg Follow up: Office Pacemaker/ICD scheduled 6 months' CareLink remote 03/16/25 Gary Santiago, LEO Amina Birmingham MD CV CARDIAC SERVICES PROCEDU RES Final Result from Last 3 Months Insurance [facility] * Guarantor: MigueErnestoKarin Account Type Relation to Patient Date of Phone Billing Address Personal/Family Self 1945 [address] [place] [address] [facility] Care Teams Sheet Metal Duct Worker Supervisor Relationship Specialty Start Date End Date Neil Mendez MD [address] [place], [place] [id number] PCP - General Emergency Medicine 06/02/24
--- OUTSIDE RECORDS SUMMARY | 2025-03-02 07:29 | XMS_ITS ---
Author Name Nena CARABALLO, MRS. [place] Address [address] [place] [address] Phone [phone] Organization [facility] Care Team Providers Care Guest Relation Officer Name Role Phone Khanh Barrett Unavailable [phone] Tre Patterson Unavailable [phone] Alcides Adams Unavailable [phone] Reason for Referral Not Available Allergies, adverse reactions, alerts Allergen Type Reaction Severity Status Onset Date Adhesive Tape Allergy to substance (disorder) rash Unkn own Active N/A History of medication use Medication Class Instructions Start Date End Date Omeprazole 10 mg Cap delayed rel 1 capsule orally daily 1/2 to 1 hour before morning meal 2024-04-22 No Data Available Carvedilol 6.25 mg Tab 1 tablet orally 2 times per day with food 2024-04-22 No Data Available Spironolactone 25 mg Tab 1 tablet orally daily 2024-04 No Data Available Warfarin Sodium 3 mg Tab 1 tablet orally daily 2024-04 No Data Available Pravastatin Sodium 20 mg Tab 1 tablet orally daily 08-28-04 No Data Available Levothyroxine Sodium 75 MCG Tab 1 tablet orally one time 2024-04-22 No Data Availab le Lisinopril 10 mg Tab 1 tablet orally daily 2024-04-22 No Data Available Tylenol Extra Strength 500 m g Tab Take 2 tablets 8 hours as needed 2024-04-22 No Data Available blue emu topical cream PRN use to the hop 2024-04-22 No Data Available Problem List Problem Status Onset Date Resolved Date Synopsis GERD (gastroesophageal reflux disease) Active N/A N/A HTN (hypertension) Active 2024-04-22 N/A N/A HLD (hyperlipidemia) Active 2024-04-22 N/A N/A Polymorphic ventricular tachycardia Active 2024-04-22 N/A N/A ICD (implantable cardioverte r-defibrillator) in place Active 2024-04-22 N/A N/A Hypothyroidism Active 2024-04-22 N/A N/A Chronic anticoagulation Active 2024-04-22 N/A N /A Chronic left hip pain Active 2024-04-22 N/A N/A Intracardiac thrombosis, not elsewhere classified Active 2024-04-22 N/A N/A Non-ischemic cardiomyopathy Active 2024-04-22 N/A N/A Encounters Encounters Type Facility Date of Service Diagnosis/Co mplaint Home visit for evaluation and management of new patient requiring medically appropriate examination and moderate level of medical decision making. If using time, at least 60 minutes total time on enco [facility] 04/22/2024 Gastro-esophageal re flux disease without esophagitisEssential (primary) hypertensionHyperlipidemia, unspecifiedOther ventricular tachycardiaHypothyroidism, unspecifiedPain in left hipOther chronic painIntracardiac thrombosis, not elsewhere classifiedOther cardiomyopathiesLong term (current) use of anticoagulantsPresence of automatic (implantable) cardiac defibrillator Home visit for evaluation and management of new patient requiring medically appropriate examination and moderate level of medical decision making. If using time, at least 60 minutes total time on enco [facility] 04/22/2024 Essential (primary) hypertension Home visit for evaluation and management of new patient requiring medically appropriate examination and moderate level of medical decision making. If using time, at least 60 minutes total time on enco [facility] 04/22/2024 Essential (primary) hypertension Vital Signs Date of Collection Vitals 2024-04-22 14:59:00 Height - 160.02 cmWe ight - 65.32 kgBody Mass Index (BMI) - 25.51 kg/m2BP Diastolic - 80.0 mm[Hg]BP Systolic - 130.0 mm[Hg]Heart Rate - 58.0 /minRespiratory Rate - 16.0 /minBody Temperature - 37.78 CelO2 % BldC Oximetry - 96.0 % Social History Social History Social History Observation Description Effec tive Time Current Smoking Status Never smoker 2025-02-16 4 Sex Female History of Procedures Procedures Service Procedure code Service date Servicing provider Phone# Home visit for evaluation and management of new patient requiring medically appropriate examination and moderate level of medical decision making. If using time, at least 60 [place] [id number] 2024-04-22 No Data Available No Data Availa ble Most recent systolic blood pressure 130 -139 mm Hg 3075F 2024-04-22 No Data Available No Data Availa ble Most recent dystolic blood pressure 80-89 mm Hg 3079F 2024-04-22 No Data Available No Data Availa ble Functional Status Functional Category Effective Dates lives alone independently 2024-04-[address] 2024-04-22 Mental Status Status Date Cognitive: Mini-Cog Score: 3 (04/22/2024 ) 2024-04-22 Assessments Date of Service Assessments 2024-04-22 14:59:00 GERD (gastroesophage al reflux disease)HTN (hypertension)HLD (hyperlipidemia)Polymorphic ventricular tachycardiaICD (implantable cardioverter-defibrillator) in placeHypothyroidismChronic anticoagulationChronic left hip painIntracardiac thrombosis, not elsewhere classifiedNon-ischemic cardiomyopathy Plan of Care Date of Service Plans 2024-04-22 14:59:00 Dr Tre Patterson - new rn clinical review, appt: 05/05/2024; prior Dr Amina Birmingham retired.chronic; stablecontinue omeprazoleavoid food triggersBP controlled and stablecontinue lisinopril and carvediloldiscussed sodium and caffeine intakeencouraged drinking 40 oz or more of water dailychroniccontinue statinheart healthy dietcontinue staying activechronic; stableICD in placecardiology follow up Q6 months: 05/05/2024see #4chronic; stablecontinue levothyroxinemonitor thyroid panel annuallysecondary to #9coumadin levels are checked once a monthchronic; stableimproved somecontinue Blue emu cream and Tylenol PRNstablecontinue anticoagulation treatment with monitoringcardiology follow up 4chronic; stablecontinue spironolactonecardiology follow up 05/05/2024 Health Concerns Date Concern 2024-04-22 [facility] is a service that involves a physician or advanced practice provider conducting comprehensive assessments in your patient s home or virtually to address crucial areas such as chronic conditions, quality gaps, social concerns, fall risk prevention, and various screenings. Please note that your patient will remain attributed to you even though they are participating in this service. If you have any questions, please reach out directly to our team at the phone number above.Your patient, Cara Camarena, 1945, was seen today for a [facility] Call visit. Patient read rights and responsibilities and consented to treatment. The purpose of this summary is to update you on the patient's current health status and share any relevant findings from the examination. 2024-04-22 Patient reports her current PCP is leaving the medical group in May 2024 so she will need to establish a new family doctor.
[2025-03-02 07:38] LABS: Hematocrit 39.3 % (37.0-47.0); Hemoglobin 12.9 g/dL (12.0-15.0); Immature Granulocyte Percent A 0.2 % (0-0.5); Lymphocytes Absolute Auto 1.34 K/mm3 (0.9-3.2); Mean Corpuscular HGB Conc 32.8 g/dl (32-36); Mean Corpuscular Hemoglobin 30.4 pg (26-34); Mean Corpuscular Volume 92.7 fl (80-100); Nucleated Red Blood Cells Absolute Auto 0.000 K/mm3 (0.0-0.012); Nucleated Red Blood Cells Perc 0.0 % (0.0-0.2); Platelet Count Result 239 k/mm3 (150-375); Red Blood Count 4.24 M/mm3 (4.2-5.4); White Blood Count 5.1 K/mm3 (4.5-10.0)
[2025-03-02 07:49] LABS: INR 2.3; Partial Thromboplastin Time 33.3 Seconds (22.3-36.8); Prothrombin Time 24.3 Seconds (11.1-14.7)
--- NOTE | 2025-03-02 07:51 | ED.GENADULT ---
HPI - General Adult General Chief complaint: Unspecified Stated complaint: Pacemaker went off Pacemaker made a loud tone Time Seen by Provider: 03/02/25 07:21 Source: patient, family (daughter in law) and other (Blayne, [employer] ) Mode of arrival: ambulatory Limitations: no limitations History of Present Illness HPI narrative: Patient presents with report of her pacemaker going off. She heard a loud tone. She reports it firing but when asked to clarify, she is able to note that her device has gone off before and this was different, only that it made a beep. Spoke with [employer] Blayne via phone at 7:20 who confirms that it did not fire but rather this represents PANCHO, electronic replacement indicator. Device will need to be replace, typically within approximately 3 months. Will fax report but able to note that it was placed by Dr Kessler (who has since retired). Patient reports that she has been short of breath, chronic. No chest pain. Follows with Dr Patterson whom she has an appointment with in April. She is on furosemide which she takes for CHF; also why her device was placed. Has pain between her shoulder blades. Has not taken AM meds yet today. Knows she is due for a new device. Related Data Home Medications ?Medication ?Instructions ?Recorded ?Confirmed ?Last Taken ?Type warfarin 3 mg tablet 3 mg PO DAILY 04/01/19 02/01/25 Unknown History Allergies Allergy/AdvReac Type Severity Reaction Status Date / Time adhesive tape AdvReac Intermediate Rash Verified 02/01/25 10:39 codeine AdvReac Intermediate NAUSEA/VOMI Verified 02/01/25 10:39 TING PMFSH Past Medical History Medical History Pruritus ani Cardiac pacemaker Low output heart failure Disorder of implantable defibrillator Chronic heart failure Cardiomyopathy Family History Family History Mother Family history of congestive heart failure, Onset Age: 88 Patient's mother is , Onset Age: 88 Father Patient's father is , Onset Age: 68 Acute myocardial infarction, Onset Age: 68 Father Heart disease Mother Heart disease Breast cancer Colon polyp Sibling Heart disease Other Hypertension Social History Social History (Updated 02/01/25 @ 10:48 by Olivia Cardona MA) Social History: Caffeine-coffee/tea Smoking status: Never smoker Second hand tobacco smoke exposure: No Alcohol intake: current Alcohol use details: rarely Substance use: never Substance use type: does not use Do You Feel Safe in your Home?: Yes Lack of Transportation: No Lack of Food: Never True Current Housing: I Have Housing Concerned About Future Housing: No Difficulty Paying Gas/Electric Bills: No Difficulty Paying for Meds: No Currently Unemployed: No Education: Grade School Difficulty w/ Childcare or Family Care: No Exam Narrative: GENERAL: Well-appearing, well-nourished, and in no acute distress. HEAD: Normocephalic, atraumatic. EYES: Non injected, non icteric ENT: Nares clear, no rhinorrhea or epistaxis. Gross auditory acuity intact. NECK: Supple. No meningismus. CHEST: Speaking in full sentences. No respiratory distress. HEART: Regular rate and rhythm. . ABDOMEN: Soft, nondistended. EXTREMITIES: Normal range of motion. No lower extremity edema. SKIN: Warm, dry, no rash. NEURO: No focal deficits. Alert and oriented. Answering questions. Following commands. Normal speech without aphasia or dysarthria. PSYCH: Normal mood and affect. Course Vital Signs Vital signs: Vital Signs Temperature 97.9 F 03/02/25 07:03 Pulse Rate 92 03/02/25 07:03 Respiratory Rate 14 03/02/25 07:03 Blood Pressure 144/77 H 03/02/25 07:03 Pulse Oximetry 98 03/02/25 07:03 Oxygen Delivery Room Air 03/02/25 07:03 Temperature 97.9 F 03/02/25 07:03 Pulse Rate 63 03/02/25 12:29 Respiratory Rate 15 03/02/25 12:29 Blood Pressure 115/74 03/02/25 12:29 Pulse Oximetry 98 03/02/25 12:29 Oxygen Delivery Room Air 03/02/25 07:03 Medical Decision Making MDM Narrative Medical decision making narrative: Patient presents after reporting that her pacemaker went off. She heard a loud tone. Later clarifies that this was the only indicator ; was not shocked. Not having chest pain. In the emergency department she is afebrile with vital signs notable for mild hypertension. [employer] rep Blayne jane via phone device did not fire. [employer] Device Interrogation report faxed and reviewed: Device was implanted September 23, 2017. Device Serial # included in report. Pacing impedance and defibrillation impedance criteria included. It is recommended that the device be replaced. Less than 3 months to EOS. Alert: RESIDENTIAL PLUMBER: battery voltage low. Patient has had 1 episode of VT-NS since 06/02/24. No shocks have been delivered. Attempted to speak with Dr Patterson given he is patient's application support developer however he is only editor dictionary state for interventional cardiology/STEMI notifications/discussions and was unable to to discuss the patient given he was with another patient at the time. CBC with some mild eosinophilia however no leukocytosis, anemia, thrombocytopenia. INR 2.3. 2 negative troponins. BNP mildly elevated but not to a degree to suggest acute heart failure especially based on the reference range of the assay for patient's age. Discussed patient with editor dictionary non-training officer Dr Webb. He does recommend that if patient is able to, to present to the [facility] and be seen today to try to get procedure scheduled for the future. Copy of device interrogation report is given to take with her. I did discuss this with the patient who ever seems to verified understanding but she does request that I discuss with her [id number] who is also her emergency contact, Chantel. I called Chantel at 11:20 and she confirms that she is able to pick Ms. Camarena up today and take for this. Patient is otherwise been stable. VS WNL. Vital Signs Vital Signs: Vital Signs Temperature 97.9 F 03/02/25 07:03 Pulse Rate 92 03/02/25 07:03 Respiratory Rate 14 03/02/25 07:03 Blood Pressure 144/77 H 03/02/25 07:03 Pulse Oximetry 98 03/02/25 07:03 Oxygen Delivery Room Air 03/02/25 07:03 Temperature 97.9 F 03/02/25 07:03 Pulse Rate 63 03/02/25 12:29 Respiratory Rate 15 03/02/25 12:29 Blood Pressure 115/74 03/02/25 12:29 Pulse Oximetry 98 03/02/25 12:29 Oxygen Delivery Room Air 03/02/25 07:03 Lab Data Lab results reviewed: Yes I reviewed the patient's lab results. 03/02/25 07:31 10/15/25 07:31 Labs: Lab Results 03/02/25 03/02/25 Range/Units 07:31 09:53 WBC 5.1 (4.5-10.0) K/mm3 RBC 4.24 (4.2-5.4) M/mm3 Hgb 12.9 (12.0-15.0) g/dL Hct 39.3 (37.0-47.0) % MCV 92.7 (80-100) fl MCH 30.4 (26-34) pg MCHC 32.8 (32-36) g/dl RDW 12.3 (11.5-14.5) % Plt Count 239 (150-375) k/mm3 MPV 9.3 (7.4-10.4) fl Immature Gran % (Auto) 0.2 (0-0.5) % Neut % (Auto) 61.0 (45.5-73.1) % Lymph % (Auto) 26.4 (18.3-44.2) % Atkinson % (Auto) 6.7 (2.6-8.5) % Eos % (Auto) 5.1 H (0-4.4) % Baso % (Auto) 0.6 (0.2-1.2) % Lymph # (Auto) 1.34 (0.9-3.2) K/mm3 Atkinson # (Auto) 0.3 (0.1-0.6) K/mm3 Eos # (Auto) 0.3 (0-0.3) K/mm3 Baso # (Auto) 0.0 (0.0-0.1) K/mm3 Abs Immat Gran (auto) 0.01 (0.00-0.031) K/mm3 Absolute Neuts (auto) 3.1 (1.3-6.7) K/mm3 Absolute Nucleated RBC 0.000 (0.0-0.012) K/mm3 Nucleated RBC % 0.0 (0.0-0.2) % PT 24.3 H (11.1-14.7) Seconds INR 2.3 APTT 33.3 (22.3-36.8) Seconds Sodium 137 (137-145) mmol/L Potassium 4.1 (3.4-5.0) mmol/L Chloride 106 (98-107) mmol/L Carbon Dioxide 24 (22-30) mmol/L Anion Gap 7 (4-12) mmol/L BUN 16 (7-17) mg/dL Creatinine 0.78 (0.7-1.0) mg/dL Estim Creat Clear Calc 40 ml/min Estimated GFR > 60 (59 - ) Glucose 105 (65-110) mg/dL Calcium 9.3 (8.4-10.2) mg/dL Magnesium 2.2 (1.6-2.3) mg/dL Total Bilirubin 0.5 (0.2-1.3) mg/dL AST 20 (14-36) U/L ALT 14 (6-35) U/L Alkaline Phosphatase 73 (38-126) U/L Troponin I < 0.012 < 0.012 (0.000-0.034) ng/mL NT-Pro-B Natriuret Pep 148 H (19.9-100) pg/mL Total Protein 7.1 (6.3-8.2) g/dL Albumin 4.4 (3.5-5.1) g/dL Lipase 94 (23-300) U/L Imaging Data Attestation: I personally reviewed and interpreted this imaging study as follows: My impression: Dual lead device in place appreciated on my independent interpretation of chest x-ray Radiologist's impression: Impressions Chest X-Ray 03/02/25 07:55 IMPRESSION: 1. No acute cardiopulmonary findings. ECG Data EKG #1: Attestation: I personally reviewed and interpreted this ECG as follows: ECG completion date: 03/02/25 ECG completion time: 07:10 Prior ECG tracings: not available for review (No prior for comparison) Interpretation: Paced rhythm at a rate of 61 beats per minute. MI interval 123. QRS 121. QT/QTC 443/447. No T-wave inversions. EKG #2: Attestation: I personally reviewed and interpreted this ECG as follows: ECG completion date: 03/02/25 ECG completion time: 09:53 Interpretation: Paced rhythm at a rate of 54 beats per minute. MI interval 118. QRS 118. QT/QTC 477/453. No T-wave inversions. Discharge Plan Discharge Clinical Impression: Elective replacement indicated for implantable cardioverter-defibrillator (ICD) Patient Disposition: Home Condition: Stable Instructions: Antibiotic Form, Implantable Cardioverter Defibrillator (DC) Additional Instructions: As we discussed, your defibrillator did not go off but rather be sound that you heard was a tone that indicates that it will need to be replaced approximately in the next 3 months. Go to the [facility] where you normally see Dr Patterson and you will be seen today to discuss further. You can take the copy of the device interrogation report that you are being provided. Return to the emergency department with any new or worsening symptoms. In the interim, continue to take all of your other medications as prescribed. Patient Language: Filipino Prescriptions: No Action omeprazole 10 mg capsule,delayed release(/EC) See Rx Instructions .ROUTE .COMPLEX Qty: 90 2RF Dose Instruction: TAKE 1 CAPSULE BY MOUTH DAILY Rx Instructions: TAKE 1 CAPSULE BY MOUTH DAILY pravastatin 20 mg tablet 20 mg PO DAILY Qty: 90 2RF spironolactone 25 mg tablet 25 mg PO DAILY Qty: 90 2RF levothyroxine [Synthroid] 75 mcg tablet 75 mcg PO DAILY Qty: 90 2RF warfarin 3 mg tablet 3 mg PO DAILY carvedilol 6.25 mg tablet 6.25 mg PO Q12H Qty: 180 2RF Rx Instructions: must administer with a meal/food fluticasone propionate [Allergy Relief (fluticasone)] 50 mcg/actuation spray,suspension 1 spray intranasal BID Qty: 48 2RF Rx Instructions: administer into each nostril lisinopril 10 mg tablet 10 mg PO DAILY Qty: 90 2RF Follow-up/Referrals: Tre Patterson MD [Physician, Cardiology] Neil Mendez MD [Primary Care Provider, Internal Medicine] Time of Disposition: 11:27
[2025-03-02] MEDS: ACETAMINOPHEN 500 MG TABLET 1000 MG PO (08:00)
[2025-03-02 08:02] LABS: Alanine Aminotransferase 14 U/L (6-35); Albumin Level 4.4 g/dL (3.5-5.1); Alkaline Phosphatase 73 U/L (38-126); Anion Gap 7 mmol/L (4-12); Aspartate Amino Transferase 20 U/L (14-36); Bilirubin,Total 0.5 mg/dL (0.2-1.3); Blood Urea Nitrogen 16 mg/dL (7-17); Calcium 9.3 mg/dL (8.4-10.2); Carbon Dioxide 24 mmol/L (22-30); Chloride 106 mmol/L (98-107); Estimated CRCL calculation 40 ml/min; Estimated Glomerular Filt Rate > 60; Glucose 105 mg/dL (65-110); Lipase 94 U/L (23-300); Potassium 4.1 mmol/L (3.4-5.0); Sodium 137 mmol/L (137-145); Total Protein 7.1 g/dL (6.3-8.2)
[2025-03-02 08:12] LABS: Troponin I < 0.012 ng/mL (0.000-0.034)
[2025-03-02 08:14] LABS: Magnesium 2.2 mg/dL (1.6-2.3)
[2025-03-02 08:22] LABS: NT Pro B Type Natriuretic Pept 148 pg/mL (19.9-100)
--- NOTE | 2025-03-02 09:44 | ECG_ITS ---
Test Date: 2025-03-02 09:53:02 Measurements Intervals [place] Rate: 54 P: 99 OK: 118 QRS: 113 QRSD: 118 T: 83 QT: 477 QTc: 453 Interpretive Statements ATRIAL SENSE- ELECTRONIC VENTRICULAR PACEMAKER BASELINE ARTIFACT- I, II, AVR, AVL, V4 NO FURTHER INTERPRETATION IS POSSIBLE ATYPICAL ECG Compared to ECG 03/02/2025 07:10:34 No significant changes Electronically Signed On 03-02-2025 09:56:09 CDT by Jorge Alberto Augustine D.O.
[2025-03-02 10:30] LABS: Troponin I < 0.012 ng/mL (0.000-0.034)
== END 2025-03-02 12:30 | disposition home or self-care (01) ==
PROVIDERS: Emergency Provider Student in an Organized Health Care Education/Training Program; PCP Emergency Medicine
DX: Z45.018 Encounter for adjustment and management of other part of cardiac pacemaker (principal); I50.9 Heart failure, unspecified; I42.9 Cardiomyopathy, unspecified; Z79.899 Other long term (current) drug therapy; Z79.01 Long term (current) use of anticoagulants
CPT/HCPCS: 36415; 71046; 80053; 83690; 83735; 83880; 84484; 85025; 85610; 85730; 93005; 99284; A9270